=== PATIENT | male | born 1960 | race Caucasian/White ===

== ENCOUNTER → 2017-09-05 | Outpatient (CLI) | payer OTHER ==
[~2017-09-05] MED LIST: CLOBEX T; DOXYCYCLINE50 M1 PO; GLUCOPHAGE500 M1 PO; NIACIN500 M5 PO; TRICOR145 M1 PO; VALSARTAN40 MG PO
== END | disposition home or self-care (01) ==
LOC: CARD 01:16
DX: R07.89 Other chest pain (principal)

== ENCOUNTER → 2018-07-15 | Outpatient (CLI) | payer OTHER ==
[2018-07-15 10:23] LABS: BASO # 0.1 10*3/uL (0.0-0.1); BASO % 0.7 % (0.0-1.0); EOS # 0.1 10*3/uL (0.0-0.4); EOS % 1.2 % (1.0-4.0); HEMATOCRIT 43.7 % (42.0-52.0); HEMOGLOBIN 14.4 g/dl (14.0-18.0); LYMPH # 2.1 10*3/uL (1.3-4.4); LYMPH % 30.6 % (27.0-41.0); MEAN CELL VOLUME 83.1 fl (80.0-94.0); MEAN CORPUSCULAR HGB 27.4 pg (27.0-31.0); MONO # 0.4 10*3/uL (0.1-1.0); MONO % 5.1 % (3.0-9.0); NEUT # 4.2 10*3/uL (2.3-7.9); NEUT % 61.8 % (47.0-73.0); PLATELET COUNT AUTOMATED 311 10*3/uL (130-400); RED BLOOD COUNT 5.26 10*6/uL (4.50-5.90); RED CELL DISTRI WIDTH 13.1 % (0-14.5); WHITE BLOOD COUNT 6.8 10*3/uL (4.8-10.8)
[2018-07-15 10:50] LABS: ALBUMIN 3.7 gm/dl (3.1-4.5); BUN 12 mg/dl (7-24); CHLORIDE 104 mmol/L (98-107); CHOLESTEROL 192 mg/dL (<200); CREATININE 1.04 mg/dL (0.70-1.30); POTASSIUM 3.8 mmol/L (3.5-5.1); SGOT/AST 20 IU/L (3-35); SGPT/ALT 37 U/L (12-78); SODIUM 138 mmol/L (136-145); TRIGLYCERIDES 211 mg/dl (<150); VLDL CHOLESTEROL 42 mg/dL (6-40)
[2018-07-15 10:57] LABS: ALKALINE PHOSPHATASE 63 U/L (45-117); FREE T4 0.91 ng/dl (0.76-1.46); HDL CHOLESTEROL 45 mg/dl (40-60); LDL CHOLESTEROL 105 mg/dL (9-159)
[2018-07-15 12:29] LABS: VITAMIN D, 25-HYDROXY 39.3 ng/mL (30-100)
[2018-07-16 08:14] LABS: IMMUNOGLOBULIN G, QNT 740 mg/dL (700-1600); IMMUNOGLOBULIN M, QNT 30 mg/dL (20-172)
== END | disposition home or self-care (01) ==
LOC: LAB 09:30
PROVIDERS: Internal Medicine
DX: K12.1 Other forms of stomatitis (principal)

== ENCOUNTER → 2019-03-19 | Day surgery (SDC) | payer OTHER ==
[~2019-03-19] VITALS: Ht 177.8 cm; Wt 106.6 kg
--- NOTE | ~2019-03-19 | O ---
[place], [place] OPERATIVE NOTE NAME: WENDY FRAGOSO UNIT #: [id number] ROOM: DOCTOR: POLO TOUSSAINT MD BIRTHDATE: [birth year] DOS: 03/19/2019 GASTROENDOSCOPIC REPORT CHIEF COMPLAINT: Colonic screening, undergoing investigation. ALLERGIES: No known medication. FAMILY HISTORY: Noncontributory. PAST SURGICAL HISTORY: Minor podiatric. PAST MEDICAL HISTORY: Hypertension, diabetes mellitus. PROCEDURE: Today's procedure part of investigation is colonoscopy. PREMEDICATION: Propofol. SCOPE: Olympus forward-viewing colonoscope 10L video. REPORT: After putting the patient in left lateral position and application of lubricant to the scope, the scope was introduced. Thereafter, under direct visualization, advanced through the length of colon without difficulty. Colon mucosa and vascularity carefully examined. Base of the cecum explored, appendiceal orifice identified, ileocecal valve was defined. Scope was gradually withdrawn from ascending, transverse, descending colon. The patient extubated and tolerated the procedure well. IMPRESSION: Normal colonoscopic examination. PLAN AND DISCUSSION: High fiber fruit diet. ACTIVITY: Ad patria. FOLLOWUP: Routinely with you in office, p.r.n. visit with us in [facility]. The patient does not need another colonoscopy until 10 years. Thank you very much indeed for your kind referral. [place], [place] OPERATIVE NOTE NAME: WENDY FRAGOSO UNIT #: [id number] ROOM: DOCTOR: POLO TOUSSAINT MD BIRTHDATE: [birth year] POLO TOUSSAINT MD CM:OPRECORD:OPERATIVE NOTE [id number] POLO TOUSSAINT MD 04/02/19 0944 interface
[2019-03-19 06:48] VITALS: BP 120/73
[2019-03-19 08:07] VITALS: BP 105/67
[2019-03-19 08:22] VITALS: BP 108/71
[2019-03-19 08:38] VITALS: BP 118/80
== END | disposition home or self-care (01) ==
LOC: SDC 03-17 11:00
DX: Z12.11 Encounter for screening for malignant neoplasm of colon (principal); I10 Essential (primary) hypertension; E11.9 Type 2 diabetes mellitus without complications; E78.5 Hyperlipidemia, unspecified; Z79.84 Long term (current) use of oral hypoglycemic drugs; Z79.899 Other long term (current) drug therapy; Z88.8 Allergy status to other drugs, medicaments and biological substances; Z98.890 Other specified postprocedural states; Z83.3 Family history of diabetes mellitus; Z82.49 Family history of ischemic heart disease and other diseases of the circulatory system; Z86.010 Personal history of colon polyps

== ENCOUNTER 2020-05-13 21:06 | Emergency (ER) | payer OTHER ==
[~2020-05-13] VITALS: Ht 180.3 cm; Wt 113.4 kg
[2020-05-13] MEDS ORDERED: MEDROL DOSEPAK4 MG PO (21:56)
[2020-05-13] MEDS ORDERED: PEPCID40 MG PO (21:56)
== END 2020-05-13 22:39 | disposition home or self-care (01) ==
LOC: ED 21:06
DX: T63.441A Toxic effect of venom of bees, accidental (unintentional), initial encounter (principal); Z88.8 Allergy status to other drugs, medicaments and biological substances; Z79.899 Other long term (current) drug therapy; Z79.84 Long term (current) use of oral hypoglycemic drugs; Y92.89 Other specified places as the place of occurrence of the external cause

== ENCOUNTER → 2020-10-25 | Outpatient (CLI) | payer OTHER ==
[~2020-10-25] MED LIST changes: +MEDROL DOSEPAK4 MG PO; +PEPCID40 MG PO
== END | disposition home or self-care (01) ==
LOC: MRI 08:00
PROVIDERS: ATTEND Internal Medicine
DX: M47.812 Spondylosis without myelopathy or radiculopathy, cervical region (principal); M48.02 Spinal stenosis, cervical region; M50.223 Other cervical disc displacement at C6-C7 level; M25.78 Osteophyte, vertebrae

== ENCOUNTER → 2021-02-10 | Outpatient (CLI) | payer OTHER ==
[2021-02-10 13:09] LABS: BASO % 0.4 % (0.0-1.0); EOS # 0.1 10*3/uL (0.0-0.4); EOS % 0.6 % (1.0-4.0); HEMATOCRIT 44.8 % (42.0-52.0); LYMPH # 2.1 10*3/uL (1.3-4.4); LYMPH % 21.6 % (27.0-41.0); MEAN CELL VOLUME 84.5 fl (80.0-94.0); MEAN CORPUSCULAR HGB 26.6 pg (27.0-31.0); MEAN CORPUSCULAR HGB CONC 31.5 g/dl (33.0-37.0); MEAN PLATELET VOLUME 8.9 fl (9.6-12.3); MONO # 0.6 10*3/uL (0.1-1.0); MONO % 6.2 % (3.0-9.0); NEUT # 6.8 10*3/uL (2.3-7.9); NEUT % 70.7 % (47.0-73.0); PLATELET COUNT AUTOMATED 366 10*3/uL (130-400); RED CELL DISTRI WIDTH 13.2 % (0-14.5); WHITE BLOOD COUNT 9.6 10*3/uL (4.8-10.8)
[2021-02-10 13:34] LABS: VITAMIN D, 25-HYDROXY 63.1 ng/mL (30-100)
[2021-02-10 13:38] LABS: ALBUMIN 3.9 gm/dl (3.1-4.5); ALKALINE PHOSPHATASE 69 U/L (45-117); BUN 14 mg/dl (7-24); CHLORIDE 104 mmol/L (98-107); CHOLESTEROL 192 mg/dL (<200); CREATININE 0.94 mg/dL (0.70-1.30); FREE T4 1.04 ng/dl (0.76-1.46); LDL CHOLESTEROL 99 mg/dL (9-159); POTASSIUM 3.9 mmol/L (3.5-5.1); SGOT/AST 21 IU/L (3-35); SGPT/ALT 39 U/L (12-78); SODIUM 139 mmol/L (136-145); TOTAL PROTEIN 7.2 gm/dL (6.4-8.2); TRIGLYCERIDES 246 mg/dl (<150)
== END | disposition home or self-care (01) ==
LOC: LAB 12:37
PROVIDERS: ATTEND Internal Medicine
DX: Z12.5 Encounter for screening for malignant neoplasm of prostate (principal); K12.1 Other forms of stomatitis; I10 Essential (primary) hypertension; E55.9 Vitamin D deficiency, unspecified; R53.81 Other malaise; E11.9 Type 2 diabetes mellitus without complications; Z13.228 Encounter for screening for other metabolic disorders; Z13.29 Encounter for screening for other suspected endocrine disorder; Z11.59 Encounter for screening for other viral diseases

== ENCOUNTER → 2024-06-24 | Outpatient (CLI) | payer OTHER ==
[2024-06-24 11:37] LABS: BASO # 0.1 10*3/uL (0.0-0.1); BASO % 0.4 % (0.0-1.0); EOS % 0.3 % (1.0-4.0); HEMATOCRIT 48.1 % (42.0-52.0); LYMPH # 3.1 10*3/uL (1.3-4.4); LYMPH % 24.7 % (27.0-41.0); MEAN CELL VOLUME 85.4 fl (80.0-94.0); MEAN CORPUSCULAR HGB 26.6 pg (27.0-31.0); MEAN CORPUSCULAR HGB CONC 31.2 g/dl (33.0-37.0); MEAN PLATELET VOLUME 8.3 fl (9.6-12.3); MONO # 0.9 10*3/uL (0.1-1.0); MONO % 7.5 % (3.0-9.0); NEUT # 8.3 10*3/uL (2.3-7.9); NEUT % 66.8 % (47.0-73.0); PLATELET COUNT AUTOMATED 417 10*3/uL (130-400); RED BLOOD COUNT 5.63 10*6/uL (4.50-5.90); RED CELL DISTRI WIDTH 14.2 % (0-14.5); WHITE BLOOD COUNT 12.4 10*3/uL (4.8-10.8)
[2024-06-24 12:07] LABS: ALKALINE PHOSPHATASE 55 U/L (46-116); BUN 16 mg/dl (9-23); CHLORIDE 104 mmol/L (98-107); CHOLESTEROL 191 mg/dL (<200); FREE T4 1.28 ng/dl (0.89-1.76); LDL CHOLESTEROL 99 mg/dL (9-159); POTASSIUM 4.2 mmol/L (3.4-5.1); SGPT/ALT 30 U/L (5-49); TOTAL PROTEIN 7.1 gm/dL (6.0-8.0); TRIGLYCERIDES 140 mg/dl (<150)
== END | disposition home or self-care (01) ==
LOC: LAB 11:07
PROVIDERS: ATTEND Internal Medicine
DX: Z13.1 Encounter for screening for diabetes mellitus (principal); Z13.0 Encounter for screening for diseases of the blood and blood-forming organs and certain disorders involving the immune mechanism; Z13.21 Encounter for screening for nutritional disorder; Z13.220 Encounter for screening for lipoid disorders; Z13.228 Encounter for screening for other metabolic disorders; Z13.29 Encounter for screening for other suspected endocrine disorder; Z13.6 Encounter for screening for cardiovascular disorders; Z13.89 Encounter for screening for other disorder; Z13.9 Encounter for screening, unspecified; J44.9 Chronic obstructive pulmonary disease, unspecified; I10 Essential (primary) hypertension; E11.9 Type 2 diabetes mellitus without complications

== ENCOUNTER → 2025-07-06 | Outpatient (CLI) | payer OTHER ==
[2025-07-06 10:15] LABS: BASO # 0.1 10*3/uL (0.0-0.1); BASO % 0.7 % (0.0-1.0); EOS # 0.1 10*3/uL (0.0-0.4); EOS % 1.0 % (1.0-4.0); MEAN CELL VOLUME 83.8 fl (80.0-94.0); MEAN CORPUSCULAR HGB 27.1 pg (27.0-31.0); MEAN PLATELET VOLUME 8.4 fl (9.6-12.3); MONO # 0.6 10*3/uL (0.1-1.0); MONO % 6.7 % (3.0-9.0); NEUT # 5.5 10*3/uL (2.3-7.9); NEUT % 63.3 % (47.0-73.0); NUCLEATED RED BLOOD CELL 0.0 % (0.0-0.0); NUCLEATED RED BLOOD CELL 0.0 10*3/uL (0.0-0.0); PLATELET COUNT AUTOMATED 340 10*3/uL (130-400); RED CELL DISTRI WIDTH 12.7 % (0-14.5)
[2025-07-06 11:07] LABS: BUN 9 mg/dl (9-23); FREE T4 1.30 ng/dl (0.89-1.76); LDL CHOLESTEROL 103 mg/dL (9-159); SGPT/ALT 23 U/L (5-49)
[2025-07-06 11:20] LABS: VITAMIN D, 25-HYDROXY 71.1 ng/mL (30-100)
== END ==
LOC: LAB 09:53
PROVIDERS: ATTEND Internal Medicine
DX: I10 Essential (primary) hypertension (principal); E11.9 Type 2 diabetes mellitus without complications; E78.2 Mixed hyperlipidemia; R53.83 Other fatigue; E55.9 Vitamin D deficiency, unspecified; Z13.0 Encounter for screening for diseases of the blood and blood-forming organs and certain disorders involving the immune mechanism; Z13.1 Encounter for screening for diabetes mellitus; Z13.21 Encounter for screening for nutritional disorder; Z13.220 Encounter for screening for lipoid disorders; Z13.228 Encounter for screening for other metabolic disorders; Z13.29 Encounter for screening for other suspected endocrine disorder; Z13.6 Encounter for screening for cardiovascular disorders; Z13.89 Encounter for screening for other disorder; Z13.9 Encounter for screening, unspecified